=== PATIENT | male | born 1980 | race Caucasian/White ===

== ENCOUNTER 2018-08-25 07:28 | Emergency (ER) | payer BC, OTHER ==
[2018-08-25] MEDS: ONDANSETRON (ODT) 4 MG TAB ODT (08:17)
[2018-08-25] MEDS: HYDROmorphONE 0.5 MG/0.5 ML SYG IM (08:17)
== END 2018-08-25 09:26 | disposition home or self-care (01) ==
LOC: FTE 07:28
DX: M54.6 Pain in thoracic spine (principal)
CPT/HCPCS: 96372; 99284-25